=== PATIENT | male | born 1960 | race Caucasian/White ===

== ENCOUNTER 2022-12-08 08:55 | Outpatient (CLI) | payer BC ==
[2022-12-08] MEDS ORDERED: Iopamidol 300 61% 100 ML VIAL FS ONE (09:21)
== END 2022-12-08 08:56 | disposition home or self-care (01) ==
LOC: CSHCT 08:55
PROVIDERS: ATTEND Internal Medicine
DX: C43.9 Malignant melanoma of skin, unspecified (principal); Z98.890 Other specified postprocedural states
CPT/HCPCS: 71260; 74177

== ENCOUNTER 2023-02-10 07:53 | Outpatient (CLI) | payer BC | END 2023-02-10 07:54 | disposition home or self-care (01) | LOC: CSHCT 07:53 | PROVIDERS: ATTEND Internal Medicine | DX: C43.59 Malignant melanoma of other part of trunk (principal); R91.8 Other nonspecific abnormal finding of lung field; K57.30 Diverticulosis of large intestine without perforation or abscess without bleeding; M43.17 Spondylolisthesis, lumbosacral region | CPT/HCPCS: 71260; 74177 ==

== ENCOUNTER 2023-04-29 09:11 | Outpatient (CLI) | payer BC ==
[2023-04-29] MEDS ORDERED: Iopamidol 300 61% 100 ML VIAL FS ONE (09:41)
== END 2023-04-29 09:12 | disposition home or self-care (01) ==
LOC: CSHCT 09:11
PROVIDERS: ATTEND Internal Medicine
DX: C43.59 Malignant melanoma of other part of trunk (principal); R91.8 Other nonspecific abnormal finding of lung field; K57.30 Diverticulosis of large intestine without perforation or abscess without bleeding
CPT/HCPCS: 71260; 74177

== ENCOUNTER 2024-03-02 13:24 | Outpatient (CLI) | payer BC ==
[~2024-03-02 13:24] MED LIST: Magnevist 469MG/ML 20 ML VIAL ONE
== END 2024-03-02 13:25 | disposition home or self-care (01) ==
LOC: CSHMRI 13:24
PROVIDERS: ATTEND Internal Medicine
DX: R51.9 Headache, unspecified (principal); R42 Dizziness and giddiness; C43.59 Malignant melanoma of other part of trunk; G93.0 Cerebral cysts
CPT/HCPCS: 70553; 76376

== ENCOUNTER 2024-04-06 08:25 | Outpatient (CLI) | payer BC | END 2024-04-06 08:26 | disposition home or self-care (01) | LOC: CSHULT 08:25 | PROVIDERS: ATTEND Internal Medicine | DX: N50.9 Disorder of male genital organs, unspecified (principal) | CPT/HCPCS: 76870 ==